=== PATIENT | female | born 1955 | race Caucasian/White ===

== ENCOUNTER 2017-04-11 15:48 | Emergency (ER) | payer SELFPAY ==
[~2017-04-11] VITALS: Ht 165.1 cm; Wt 62.9 kg
[2017-04-11 15:55] VITALS: BP 133/69; PULSE 83; RESP 16; TEMP 98.4; O2SAT 100
[2017-04-11 17:35] VITALS: BP 145/68; PULSE 64; RESP 20; O2SAT 100
[2017-04-11 17:41] LABS: AUTOMATED NEUTROPHIL # 5.4 TH/MM3 (1.8-7.7); BASOPHIL % 0.3 % (0.0-2.0); EOSINOPHIL % 0.1 % (0.0-4.0); HEMATOCRIT 41.7 % (35.0-46.0); LYMPH % 20.4 % (9.0-44.0); LYMPHOCYTE # 1.5 TH/MM3 (1.0-4.8); MEAN CORPUSCULAR HEMOGLOBIN 31.6 PG (27.0-34.0); MEAN CORPUSCULAR HGB CONC 33.6 % (32.0-36.0); MEAN PLATELET VOLUME 8.3 FL (7.0-11.0); MONO % 6.4 % (0.0-8.0); MONOCYTE # 0.5 TH/MM3 (0-0.9); NEUT % 72.8 % (16.0-70.0); PLATELET COUNT 301 TH/MM3 (150-450); RED BLOOD COUNT 4.44 MIL/MM3 (4.00-5.30); RED CELL DISTRIBUTION WIDTH 12.5 % (11.6-17.2); WHITE BLOOD COUNT 7.4 TH/MM3 (4.0-11.0)
[2017-04-11 17:57] LABS: CHLORIDE 101 MEQ/L (98-107); SODIUM (NA) 135 MEQ/L (136-145)
[2017-04-11 18:00] LABS: CALCIUM 9.3 MG/DL (8.5-10.1)
[2017-04-11 18:01] LABS: ALBUMIN 3.9 GM/DL (3.4-5.0); BICARBONATE 28.3 MEQ/L (21.0-32.0); BLOOD UREA NITROGEN 17 MG/DL (7-18); GLUCOSE,RANDOM 99 MG/DL (74-106)
[2017-04-11 18:04] LABS: ALT (GPT) 21 U/L (10-53); AST (GOT) 22 U/L (15-37); CREATININE 0.58 MG/DL (0.50-1.00); GLOMERULAR FILTRATION RATE 105 ML/MIN (>89)
[2017-04-11 18:06] LABS: TOTAL BILIRUBIN ADULT 0.8 MG/DL (0.2-1.0); TOTAL PROTEIN 7.5 GM/DL (6.4-8.2)
[2017-04-11 18:07] LABS: ALKALINE PHOSPHATASE 76 U/L (45-117)
--- NOTE | 2017-04-11 18:14 | PD ---
HPI Chief Complaint: General Weakness Time Seen by Provider: 17:59 Travel History International Travel<30 days: No Contact w/Intl Traveler<30days: No Traveled to known affect area: No History of Present Illness HPI 62-year-old female complains of headache, nausea, generalized malaise and weakness. Patient states that headache started last night. Patient states that headache throbbing headache frontal headache. Patient denies any visual change. Patient states that she has a tightness extending from the neck to the forehead area. Patient denies any neck stiffness. Patient denies any chest pain or shortness of breath. Patient denies abdominal pain. Patient states that she has nausea but no vomiting or diarrhea. Patient denies any dysuria or frequency. Patient denies any focal weakness or numbness of extremity. Patient denies any fever chills. Patient has history of recurrent tension headache in the past. Patient also has history of asthma. Patient states that she has poor appetite past 2 days. Patient states that she is feeling dehydrated. PFSH Past Medical History Hx Anticoagulant Therapy: No Asthma: Yes Diabetes: No Respiratory: Yes (ASTHMA) ?: Not Social History Alcohol Use: No Tobacco Use: No Substance Use: No Allergies-Medications (Allergen,Severity, Reaction): Coded Allergies: Unable to Assess (Verified Allergy, Unknown, 04/11/17) amoxicillin (Verified Allergy, Unknown, 04/11/17) budesonide (Verified Allergy, Unknown, 04/11/17) clavulanic acid (Verified Allergy, Unknown, 04/11/17) codeine (Verified Allergy, Unknown, 04/11/17) formoterol (Verified Allergy, Unknown, 04/11/17) levofloxacin (Verified Allergy, Unknown, 04/11/17) montelukast (Verified Allergy, Unknown, 04/11/17) sulfamethoxazole (Verified Allergy, Unknown, 04/11/17) trimethoprim (Verified Allergy, Unknown, 04/11/17) Reported Meds & Prescriptions Reported Meds & Active Scripts Active No Active Prescriptions or Reported Medications Review of Systems General / Constitutional: No: Fever Eyes: No: Visual changes HENT: Positive: Headaches Cardiovascular: No: Chest Pain or Discomfort Respiratory: No: Shortness of Breath Gastrointestinal: Positive: Nausea, No: Abdominal Pain Genitourinary: No: Dysuria Musculoskeletal: No: Pain Skin: No Rash Neurologic: No: Weakness Psychiatric: No: Depression Endocrine: No: Polydipsia Hematologic/Lymphatic: No: Easy Bruising Physical Exam Narrative GENERAL: Well-nourished, well-developed patient. SKIN: Focused skin assessment warm/dry. HEAD: Normocephalic. EYES: No scleral icterus. No injection or drainage. Pupils 2 mm equal reactive. NECK: Supple, trachea midline. No JVD or lymphadenopathy. No meningismus CARDIOVASCULAR: Regular rate and rhythm without murmurs, gallops, or rubs. RESPIRATORY: Breath sounds equal bilaterally. No accessory muscle use. GASTROINTESTINAL: Abdomen soft, non-tender, nondistended. MUSCULOSKELETAL: No cyanosis, or edema. BACK: Nontender without obvious deformity. No CVA tenderness. Neurologic exam normal. Data Data Last Documented VS Vital Signs Date Time Temp Pulse Resp B/P (MAP) Pulse Ox O2 Delivery O2 Flow Rate FiO2 04/11/17 17:35 64 20 145/68 (93) 100 04/11/17 15:55 98.4 Orders Orders Complete Blood Count With Diff (04/11/17 17:23) Comprehensive Metabolic Panel (04/11/17 17:23) Sodium Chlor 0.9% 1000 Ml Inj (Ns 1000 M (04/11/17 18:15) Diphenhydramine Inj (Benadryl Inj) (04/11/17 18:15) Ketorolac Inj (Toradol Inj) (04/11/17 18:15) Ondansetron Inj (Zofran Inj) (04/11/17 18:15) Ed Discharge Order (04/11/17 18:42) Labs Laboratory Tests Test 04/11/17 17:30 White Blood Count 7.4 TH/MM3 Red Blood Count 4.44 MIL/MM3 Hemoglobin 14.0 GM/DL Hematocrit 41.7 % Mean Corpuscular Volume 94.0 FL Mean Corpuscular Hemoglobin 31.6 PG Mean Corpuscular Hemoglobin Concent 33.6 % Red Cell Distribution Width 12.5 % Platelet Count 301 TH/MM3 Mean Platelet Volume 8.3 FL Neutrophils (%) (Auto) 72.8 % Lymphocytes (%) (Auto) 20.4 % Monocytes (%) (Auto) 6.4 % Eosinophils (%) (Auto) 0.1 % Basophils (%) (Auto) 0.3 % Neutrophils # (Auto) 5.4 TH/MM3 Lymphocytes # (Auto) 1.5 TH/MM3 Monocytes # (Auto) 0.5 TH/MM3 Eosinophils # (Auto) 0.0 TH/MM3 Basophils # (Auto) 0.0 TH/MM3 CBC Comment DIFF FINAL Differential Comment Blood Urea Nitrogen 17 MG/DL Creatinine 0.58 MG/DL Random Glucose 99 MG/DL Total Protein 7.5 GM/DL Albumin 3.9 GM/DL Calcium Level 9.3 MG/DL Alkaline Phosphatase 76 U/L Aspartate Amino Transf (AST/SGOT) 22 U/L Alanine Aminotransferase (ALT/SGPT) 21 U/L Total Bilirubin 0.8 MG/DL Sodium Level 135 MEQ/L Potassium Level 3.5 MEQ/L Chloride Level 101 MEQ/L Carbon Dioxide Level 28.3 MEQ/L Anion Gap 6 MEQ/L Estimat Glomerular Filtration Rate 105 ML/MIN MDM Medical Decision Making Medical Screen Exam Complete: Yes Emergency Medical Condition: Yes Differential Diagnosis Differential diagnosis includes tension headache, cluster headache, migraine headache, dehydration, electrolyte imbalance. Narrative Course 62-year-old female with headache, nausea, generalized malaise and weakness. History of tension headache. Normal saline solution 1 L IV bolus. Toradol 30 mg IV. Benadryl 50 mg IV. Zofran 4 mg IV. Diagnosis Primary Impression: Cephalgia Qualified Codes: R51 - Headache Patient Instructions: General Instructions Additional Instructions: Zofran as needed for nausea. [id number] Excedrin Migraine as needed for headache. Follow-up with personal physician. Return if worse. Med/Other Pt SpecificInfo: No Change to Meds Scripts Ondansetron Odt (Zofran Odt) 4 Mg Tab 4 MG SL Q6HR Y for Nausea/Vomiting, #10 TAB 0 Refills Prov: Sean Sunshine MD 04/11/17 Disposition: 01 DISCHARGE HOME Condition: Stable Sean Sunshine MD Apr 11, 2017 18:14
[2017-04-11] MEDS ORDERED: KETOROLAC TROMETHAMINE 30 MG/ML (IVP) VIAL IV PUSH ONE (18:15)
[2017-04-11] MEDS ORDERED: ONDANSETRON HCL 4 MG/2 ML VIAL IV PUSH ONE (18:15)
[2017-04-11] MEDS ORDERED: diphenhydrAMINE HCL 50 MG/ML VIAL IV PUSH ONE (18:15)
[2017-04-11] MEDS ORDERED: SODIUM CHLOR 0.9% 1000 ML INJ 1,000 ML IV ONE (18:15)
[2017-04-11] MEDS ORDERED: ZOFR4TAB3 SL (18:44)
== END 2017-04-11 19:02 | disposition home or self-care (01) ==
LOC: PHEFT 15:48
DX: R51 Headache (principal); R11.0 Nausea; R53.1 Weakness
CPT/HCPCS: 80053; 85025; 96374; 96375; 99284; J1200; J1885; J2405; J7030